=== PATIENT | female | born 1965 | race Caucasian/White ===

== ENCOUNTER → 2019-12-08 16:13 | Outpatient (CLI) | payer OTHER, SELFPAY | PROVIDERS: PCP Nurse Practitioner Family; Visit Provider Nurse Practitioner | DX: R30.0 Dysuria (principal) | CPT/HCPCS: 87086 ==

== ENCOUNTER → 2019-12-29 09:43 | Outpatient (CLI) | payer OTHER, SELFPAY ==
[2019-12-29 09:57] LABS: Mean Corpuscular HGB Conc 32.5 % (30-36); Mean Corpuscular Hemoglobin 29.1 PG (26-34); Mean Corpuscular Volume 89.3 fL (80-100); Platelet Count 306 X10^3/uL (150-400); Red Blood Cell Count 4.82 X10^6/uL (4.0-5.2); Red Cell Distribution Width 13.5 % (11.6-14.8)
[2019-12-29 10:12] LABS: Alanine Aminotransferase 25 IU/L (<35); Albumin 4.9 g/dL (3.5-5.0); Albumin Globulin Ratio 1.5 (1.0-2.8); Alkaline Phosphatase 82 U/L (38-126); Aspartate Aminotransferase 43 IU/L (14-36); BUN Creatinine Ratio 20.3 (6-22); Bilirubin Total 0.8 mg/dL (0.2-1.3); Blood Urea Nitrogen 15 mg/dL (7-17); Calcium 9.9 mg/dL (8.4-10.2); Carbon Dioxide 31 mmol/L (22-32); Chloride 101 mmol/L (98-107); Cholesterol 219 mg/dL (140-199); Estimated Glomerular Filt Rate > 60.0 mL/min (>60); Globulin 3.3 g/dL (1.7-4.1); Glucose 91 mg/dL (70-100); HEMOLYSIS < 15 (0-50); Potassium 4.6 mmol/L (3.4-5.1); Sodium 139 mmol/L (137-145); Total Protein 8.2 g/dL (6.3-8.2); Triglycerides 70 mg/dL (35-150)
[2019-12-29 10:20] LABS: HDL Cholesterol 127 mg/dL (40-60); LDL Cholesterol Calculated 78 mg/dL (<100)
[2019-12-29 10:40] LABS: TSH w/ Reflex to FT4 1.31 uIU/mL (0.47-4.68)
--- NOTE | 2019-12-29 15:40 | DI.US.S_ITS ---
PROCEDURE: US ABDOMEN COMPLETE INDICATIONS: abd pain TECHNIQUE: Real-time scanning was performed of the abdominal and retroperitoneal organs, with image documentation. COMPARISON: [facility], US, US PELVIC COMPLETE, 12/29/2019, 16:10. FINDINGS: Liver: Liver is normal in size and homogeneous in echotexture. Gallbladder: No findings of gallstones or sludge are seen. The gallbladder wall is not thickened, measuring 3 mm or less. No specific pericholecystic fluid is seen. The sonographic Solorio sign is negative. Biliary ducts: Intrahepatic bile ducts are non-dilated. Extrahepatic bile duct caliber measures 3 mm. Normal is 6-7 mm or less in diameter, or 10 mm or less post-cholecystectomy. Pancreas: Visualized portions of the pancreas are sonographically normal. Spleen: Spleen is normal in size and homogeneous in echotexture. Kidneys: Kidneys are normal in size and echotexture. Right kidney measures 11.4 cm long; left kidney measures 11.2 cm long. No hydronephrosis or nephrolithiasis. No solid masses. Aorta: Visualized aorta is normal in caliber at less than 3 cm. Iliacs: Proximal common iliac arteries are normal in caliber at less than 2.5 cm. IVC: Intrahepatic inferior vena cava is patent. Miscellaneous: No free abdominal fluid. IMPRESSION: The gallbladder demonstrates a normal sonographic appearance. No biliary dilatation is seen. Dictated by: Keshav Don M.D. on 12/29/2019 at 15:54 Approved by: Keshav Don M.D. on 12/29/2019 at 15:55
--- NOTE | 2019-12-29 15:40 | DI.US.S_ITS ---
PROCEDURE: US PELVIC COMPLETE INDICATIONS: abd pain TECHNIQUE: Real-time scanning was performed of the pelvic organs, with image documentation. Additional endovaginal scanning was necessary due to incomplete visualization of the adnexal and endometrial structures by transabdominal scanning. COMPARISON: [facility], , US ABDOMEN COMPLETE, 12/29/2019, 15:50. FINDINGS: Transabdominal scanning: Limited scanning through the kidneys shows no hydronephrosis. No pathologic free abdominal or pelvic fluid. Additional, dedicated ultrasound scanning is performed of the right lower quadrant. No focal ultrasound abnormalities are seen within this region. Normal appearing peristalsing bowel can be seen. Endovaginal scanning: Uterus: Uterus is normal in size at 6.9 x 3.2 x 3.6 cm. The endometrium measures 3 mm in combined thickness. Ovaries: The right ovary measures 2 x 1.1 x 1.4 cm. The left ovary measures 1.9 x 1 x 1 cm. The ovaries have a normal sonographic appearance. Normal appearing arterial waveforms are confirmed to each ovary. No adnexal masses are seen. IMPRESSION: Normal pelvic ultrasound. Dictated by: Keshav Don M.D. on 12/29/2019 at 15:55 Approved by: Keshav Don M.D. on 12/29/2019 at 15:57
[2020-01-03 21:06] LABS: Estrogen 123 pg/mL (.)
== END ==
PROVIDERS: PCP Nurse Practitioner Family; Referring Provider Nurse Practitioner Family; Visit Provider Nurse Practitioner Family
DX: N92.6 Irregular menstruation, unspecified (principal); R10.31 Right lower quadrant pain; R10.2 Pelvic and perineal pain; Z13.6 Encounter for screening for cardiovascular disorders
CPT/HCPCS: 36415; 76700; 76856; 80053; 80061; 82672; 83001; 84443; 85027

== ENCOUNTER → 2020-01-13 11:48 | Outpatient (CLI) | payer OTHER, SELFPAY ==
--- NOTE | 2020-01-13 11:50 | DI.MG.S_ITS ---
BILATERAL DIGITAL SCREENING MAMMOGRAM 3D/2D WITH CAD: 01/13/2020 CLINICAL: Routine screening. Comparison is made to exams dated: 11/18/2018 mammogram, 07/02/2017 mammogram, and 06/18/2015 mammogram - [facility]. The tissue of both breasts is extremely dense, which lowers the sensitivity of mammography. Current study was also evaluated with a Computer Aided Detection (CAD) system. No significant masses, calcifications, or other findings are seen in either breast. There has been no significant interval change. IMPRESSION: NEGATIVE There is no mammographic evidence of malignancy. A 1 year screening mammogram is recommended. This exam was interpreted at Station ID: [id number]. NOTE: For mammograms, a report in lay terms will be sent to the patient. Approximately 15% of breast malignancies will not be visualized mammographically. In the management of a palpable breast mass, a negative mammogram must not discourage biopsy of a clinically suspicious lesion. Electronically Signed By: Misael mercado/justin:01/13/2020 17:09:27 copy to: Lety Esquivel letter sent: Normal Exam ACR BI-RADS Category 1: Negative 3341F
== END ==
PROVIDERS: PCP Nurse Practitioner Family; Referring Provider Nurse Practitioner Family; Visit Provider Nurse Practitioner Family
DX: Z12.31 Encounter for screening mammogram for malignant neoplasm of breast (principal)
CPT/HCPCS: 77063; 77067

== ENCOUNTER → 2020-04-04 11:51 | Outpatient (CLI) | payer OTHER, SELFPAY | PROVIDERS: PCP Nurse Practitioner Family; Visit Provider Nurse Practitioner | DX: R39.15 Urgency of urination (principal) | CPT/HCPCS: 87077; 87086; 87186 ==

== ENCOUNTER 2020-05-21 21:04 | Emergency (ER) | payer OTHER, SELFPAY ==
[2020-05-21 21:10] VITALS: BP 145/83; PULSE 64; RESP 18; TEMP 36.6; O2SAT 98
--- NOTE | 2020-05-21 21:17 | DI.RAD.S_ITS ---
PROCEDURE: XR SHOULDER RT MIN 2V INDICATIONS: slipped going down ladder + grabbed railing with right hand TECHNIQUE: Three views of the shoulder were acquired. COMPARISON: None. FINDINGS: Bones: No fractures or dislocations. No suspicious bony lesions. Visualized ribs appear intact. Soft tissues: No suspicious soft tissue calcifications. IMPRESSION: Intact right shoulder. Dictated by: Kalie Alvarez M.D. on 05/21/2020 at 22:15 Approved by: Kalie Alvarez M.D. on 05/21/2020 at 22:16
--- NOTE | 2020-05-22 00:49 | ED.UPPEXIN ---
HPI - Extremity Injury (Upper) General Chief Complaint: Extremity Injury, Upper Stated Complaint: RIGHT ARM AND BACK INJURY Time Seen by Provider: 05/21/20 21:27 Source: patient Mode of arrival: Ambulatory Limitations: no limitations History of Present Illness HPI narrative: This is a 55-year-old female who states she injured her right shoulder. Patient was working on 1 of the pharynx. She was descending down a set of very steep steps from the top of the very in the captain's portion. Patient states she was holding onto the railing with her right arm when she slipped. 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 She had pain immediately it has been slowly worsening. She has full range of motion but has increased pain with external rotation as well as flexion and extension. Patient states majority of her pain is in the shoulder but a little bit into the anterior chest and scapular area. She did not feel any pops. She denies any other injury. She denies any other medical issues. Denies any prior surgeries. Denies any prior injuries to that shoulder. No numbness, tingling or weakness appreciated. Related Data Previous Rx's Medication Instructions Recorded albuterol sulfate 90 mcg/actuation 2 puff INHALATION Q4-6H PRN #18 06/17/19 aerosol inhaler gram montelukast 10 mg tablet 10 mg PO DAILY #90 tab 09/08/19 pneumoc 13-carlos conj-dip cr(PF) 0.5 0.5 ml IM ONCE #0.5 ml 12/10/19 mL IM syringe budesonide-formoterol HFA 80 2 puff INHALATION BID #1 inhalation 04/20/20 mcg-4.5 mcg/actuation aerosol inhaler Allergies Allergy/AdvReac Type Severity Reaction Status Date / Time No Known Drug Allergies Allergy Verified 12/23/19 13:25 Review of Systems Review of Systems ROS Unobtainable: All systems reviewed & are unremarkable except as noted in HPI and below Patient History Medical History ASCUS of cervix with negative high risk HPV (11/2019) Asthma exacerbation Factor V Leiden mutation Frequent UTI GERD (gastroesophageal reflux disease) Irregular periods Osteoma Osteopenia (01/2018) Pelvic pain Rectal bleeding (~06/2019) Right lower quadrant pain Thyroid nodule Surgical History Status post bunionectomy (1990) Family History Brother No problems noted. Father Leukemia Grandfather No problems noted. Grandmother No problems noted. Mother No problems noted. Grandfather Suicide Grandmother [place] (myocardial infarction) Social History Smoking Status: Never smoker second hand exposure: Yes (as a kid I was, but not as an adult. ) alcohol intake: current (occasionally) substance use type: does not use Smoking Status: Never smoker alcohol intake frequency: a few times a month Substance Use Type: does not use Exam Narrative Exam Narrative: GENERAL: Alert and oriented x three, well-nourished female in mild distress. HEENT: Head normocephalic, atraumatic, EOMI, pupils reactive, face symmetric, moist mucous membranes NECK: Supple, full range of motion CARDIOVASCULAR: Regular rate and rhythm without murmurs, rubs or gallops. RESPIRATORY: Breath sounds equal bilaterally, no wheezes rales or rhonchi. ABDOMEN: Soft, nontender. Normoactive bowel sounds all 4 quadrants. No guarding or rebound, rigidity, no mass EXTREMITIES: Normal range of motion, no clubbing or edema. Neurovascularly intact. Patient has 5/5 muscle strength upper extremities bilaterally. 2/4 DTRs bilaterally. Can Filling And Closing Machine Tender are equal bilaterally. Radial pulses are equal bilaterally. Normal sensation throughout. Patient has full range of motion including with abduction, adduction, extension or flexion. Patient has very mild tenderness at the biceps tendon with palpation and rotation. NEUROLOGICAL: Cranial nerves II through XII grossly intact. Moving all extremities SKIN: Warm, dry, no petechiae, no rashes or lesions. Initial Vital Signs Initial Vital Signs: Vital Signs Temperature 97.9 F 05/21/20 21:10 Pulse Rate 64 05/21/20 21:10 Respiratory Rate 18 05/21/20 21:10 Blood Pressure 145/83 H 05/21/20 21:10 Pulse Oximetry 98 05/21/20 21:10 Course Orders Ordered: ED Orders 05/21/20 21:17 XR shoulder RT min 2V Stat Vital Signs Vital signs: Vital Signs - 8 hr 05/21/20 21:10 05/22/20 00:54 Temperature 97.9 F Pulse Rate 64 72 Respiratory Rate 18 18 Blood Pressure 145/83 H 139/73 Pulse Oximetry 98 97 MDM - Extremity Injury (Upper) Imaging Data Extremity x-ray #1: Radiologist's Impression: [address] [id number] ReportSigned Patient: Sarah Foley RMR#: [id number]: [id number]:[id number]/Sex: 55 / FDate of Service: 05/21/20Loc: EDAccession Number: [id number] Procedure: XR shoulder RT min 2V Ordering Provider: Anahy Rodriguez D.O. PROCEDURE: XR SHOULDER RT MIN 2V INDICATIONS: slipped going down ladder + grabbed railing with right hand TECHNIQUE: Three views of the shoulder were acquired. COMPARISON: None. FINDINGS: Bones: No fractures or dislocations. No suspicious bony lesions. Visualized ribs appear intact. Soft tissues: No suspicious soft tissue calcifications. IMPRESSION: Intact right shoulder. Dictated by: Kalie Alvarez M.D. on 05/21/2020 at 22:15 Approved by: Kalie Alvarez M.D. on 05/21/2020 at 22:16 [facility] Narrative Medical decision making narrative: This is a 55-year-old female who comes with right arm injury. Possibly strain, there is potential for tendon, ligamentous or muscle tear. Patient is mildly symptomatic. Plan for follow-up. L and I paperwork filled out. Discharge Plan Departure Patient Disposition: Home Clinical Impression: Right shoulder strain Instructions: DI for Shoulder Sprain Activity Restrictions/Additional Instructions: Follow-up with employee health or your primary care if your employer prefers in the next 7 days if you are not having improvement in your symptoms. You may take ibuprofen up to 800mg every 8 hours as needed, you may also take Tylenol with this up to a 1000 mg every 8 hours as needed for pain. Elevated affected body part to decrease swelling. OK to use ice pack on the affected body part. Use for 15-20 minutes each time, for 5-6x per day. If you develop worsening pain, numbness, tingling, discoloration of the affected body part, either see your doctor for an urgent re-assessment, or return to the Emergency Department. Return to the Emergency Department for any new or worsening symptoms. Prescriptions: No Action montelukast 10 mg tablet 10 mg PO DAILY Qty: 90 RF: 2 Prevnar 13 (PF) 0.5 mL syringe 0.5 ml IM ONCE Qty: 0.5 RF: 0 budesonide-formoterol [Symbicort] 80-4.5 mcg/actuation HFA aerosol inhaler 2 puff INHALATION BID Qty: 1 RF: 2 albuterol sulfate 90 mcg/actuation HFA aerosol inhaler 2 puff INHALATION Q4-6H PRN (Reason: shortness of breath or wheezing) Qty: 18 RF: 3 Referrals: Geo Hernandes ARNP [Primary Care Provider] - Stand Alone Forms: Work Release Note
[2020-05-22 00:54] VITALS: BP 139/73; PULSE 72; RESP 18; O2SAT 97
== END 2020-05-22 01:30 | disposition home or self-care (01) ==
PROVIDERS: Emergency Provider Emergency Medicine; PCP Nurse Practitioner Family
DX: S43.401A Unspecified sprain of right shoulder joint, initial encounter (principal); W01.0XXA Fall on same level from slipping, tripping and stumbling without subsequent striking against object, initial encounter
CPT/HCPCS: 73030; 99283

== ENCOUNTER → 2020-12-19 11:21 | Outpatient (CLI) | payer OTHER, SELFPAY ==
[2020-12-19 11:53] LABS: COVID19 -Nasal RAPID Negative (Negative)
== END ==
PROVIDERS: PCP Nurse Practitioner Family; Visit Provider Physician Assistant
DX: J02.9 Acute pharyngitis, unspecified (principal); R05 Cough; R19.7 Diarrhea, unspecified; Z20.822 Contact with and (suspected) exposure to COVID-19
CPT/HCPCS: 87070; 87635

== ENCOUNTER → 2021-06-06 09:40 | Outpatient (CLI) | payer OTHER, SELFPAY ==
--- NOTE | 2021-06-06 09:41 | DI.MG.S_ITS ---
BILATERAL DIGITAL DIAGNOSTIC MAMMOGRAM 3D/2D: 06/06/2021 CLINICAL: Right breast pain. Comparison is made to exams dated: 01/13/2020 mammogram, 11/18/2018 mammogram, and 07/02/2017 mammogram - [facility]. The tissue of both breasts is extremely dense, which lowers the sensitivity of mammography. No significant masses, calcifications, or other findings are seen in either breast. IMPRESSION: NEGATIVE There is no abnormality seen in the right breast to correspond with the diffuse pain, however, clinical followup is recommended. There is no mammographic evidence of malignancy. A 1 year screening mammogram is recommended. This exam was interpreted at Station ID: [id number]. NOTE: For mammograms, a report in lay terms will be sent to the patient. Approximately 15% of breast malignancies will not be visualized mammographically. In the management of a palpable breast mass, a negative mammogram must not discourage biopsy of a clinically suspicious lesion. Electronically Signed By: Isaiah marquez/justin:06/06/2021 10:11:38 copy to: Lety Esquivel letter sent: Clinical Evaluation ACR BI-RADS Category 1: Negative 3341F
== END ==
PROVIDERS: PCP Nurse Practitioner Family; Referring Provider Nurse Practitioner Family; Visit Provider Nurse Practitioner Family
DX: N64.4 Mastodynia (principal)
CPT/HCPCS: 77066; G0279

== ENCOUNTER → 2021-11-08 09:50 | Outpatient (CLI) | payer OTHER, SELFPAY ==
[2021-11-08 11:57] LABS: COVID19 -Nasal RAPID Negative (Negative)
== END ==
PROVIDERS: PCP Nurse Practitioner Family; Visit Provider Physician Assistant
DX: Z20.822 Contact with and (suspected) exposure to COVID-19 (principal)
CPT/HCPCS: 87635

== ENCOUNTER → 2022-01-30 09:01 | Outpatient (CLI) | payer OTHER, SELFPAY ==
[2022-01-30 10:10] LABS: Hematocrit 42.6 % (36-46); Hemoglobin 13.9 g/dL (12.0-16.0); Mean Corpuscular HGB Conc 32.6 % (30-36); Mean Corpuscular Hemoglobin 28.7 PG (26-34); Mean Corpuscular Volume 88.2 fL (80-100); Platelet Count 275 X10^3/uL (150-400); Red Blood Cell Count 4.83 X10^6/uL (4.0-5.2); White Blood Cell Count 4.6 X10^3/uL (4.5-11.0)
[2022-01-30 10:43] LABS: Alanine Aminotransferase 18 IU/L (<35); Albumin 4.6 g/dL (3.5-5.0); Albumin Globulin Ratio 1.5 (1.0-2.8); Alkaline Phosphatase 78 U/L (38-126); Aspartate Aminotransferase 32 IU/L (14-36); Bilirubin Total 0.6 mg/dL (0.2-1.3); Blood Urea Nitrogen 8 mg/dL (7-17); Calcium 9.5 mg/dL (8.4-10.2); Carbon Dioxide 27 mmol/L (22-32); Chloride 100 mmol/L (98-107); Cholesterol 272 mg/dL (140-199); Estimated Glomerular Filt Rate > 60 mL/min (>60); Glucose 82 mg/dL (70-100); HEMOLYSIS < 15 (0-50); Potassium 4.5 mmol/L (3.4-5.1); Sodium 136 mmol/L (137-145); Total Protein 7.6 g/dL (6.3-8.2); Triglycerides 65 mg/dL (35-150)
[2022-01-30 10:46] LABS: Free T3, Triiodothyronine Free 3.28 pg/mL (2.77-5.27); Free T4, Direct Thyroxine 0.84 ng/dL (0.78-2.19)
[2022-01-30 10:52] LABS: HDL Cholesterol 194 mg/dL (40-60); LDL Cholesterol Calculated 65 mg/dL (<100)
[2022-01-30 11:00] LABS: Thyroid Stimulating Hormone 2.03 uIU/mL (0.47-4.68)
[2022-01-30 18:50] LABS: Hep C Virus Ab w/Reflex Quant NEGATIVE s/c (NEGATIVE)
== END ==
PROVIDERS: PCP Nurse Practitioner; Referring Provider Nurse Practitioner; Visit Provider Nurse Practitioner
DX: Z00.00 Encounter for general adult medical examination without abnormal findings (principal); N91.2 Amenorrhea, unspecified; Z12.11 Encounter for screening for malignant neoplasm of colon
CPT/HCPCS: 36415; 80053; 80061; 83001; 84439; 84443; 84481; 85027; 86803

== ENCOUNTER → 2022-04-21 09:58 | Outpatient (CLI) | payer OTHER, SELFPAY | PROVIDERS: PCP Nurse Practitioner; Visit Provider Student in an Organized Health Care Education/Training Program | DX: N39.0 Urinary tract infection, site not specified (principal) | CPT/HCPCS: 87077; 87086; 87186 ==

== ENCOUNTER → 2022-10-23 10:50 | Outpatient (CLI) | payer OTHER, SELFPAY ==
--- NOTE | 2022-10-23 10:51 | DI.MG.S_ITS ---
BILATERAL DIGITAL SCREENING MAMMOGRAM 3D/2D WITH CAD: 10/23/2022 CLINICAL: Routine screening. Comparison is made to exams dated: 06/06/2021 mammogram, 01/13/2020 mammogram, 12/06/2018 mammogram, and 11/18/2018 mammogram - [facility]. Both breasts are extremely dense, which lowers the sensitivity of mammography (category d />75% glandular tissue). Current study was also evaluated with a Computer Aided Detection (CAD) system. No significant masses, calcifications, or other findings are seen in either breast. There has been no significant interval change. IMPRESSION: NEGATIVE There is no mammographic evidence of malignancy. A 1 year screening mammogram is recommended. Based on Tyrer-Cuzick model (a risk assessment model), the patient's lifetime risk is 21.0% and her 10 year risk is 7.1%. If a patient has an elevated risk, a more comprehensive evaluation should be considered and/or a referral to a genetic counselor. The [employer], [employer], and NCCN Guidelines advise the consideration of Breast MRI as an adjunct to screening mammography in patients whose Lifetime risk to develop breast cancer is 20% or higher. This exam was interpreted at Station ID: [id number]. NOTE: For mammograms, a report in lay terms will be sent to the patient. Approximately 15% of breast malignancies will not be visualized mammographically. In the management of a palpable breast mass, a negative mammogram must not discourage biopsy of a clinically suspicious lesion. Electronically Signed By: Mai castro/justin:10/23/2022 12:59:42 copy to: Lety Esquivel letter sent: Normal Exam ACR BI-RADS Category 1: Negative 3341F
== END ==
PROVIDERS: PCP Nurse Practitioner; Referring Provider Nurse Practitioner; Visit Provider Nurse Practitioner
DX: Z12.31 Encounter for screening mammogram for malignant neoplasm of breast (principal)
CPT/HCPCS: 77063; 77067

== ENCOUNTER → 2022-11-24 09:36 | Outpatient (CLI) | payer OTHER, SELFPAY | PROVIDERS: PCP Nurse Practitioner; Visit Provider Physician Assistant | DX: R30.0 Dysuria (principal) | CPT/HCPCS: 87086 ==

== ENCOUNTER → 2023-01-02 10:09 | Outpatient (CLI) | payer OTHER, SELFPAY | PROVIDERS: PCP Nurse Practitioner; Visit Provider Physician Assistant | DX: R30.0 Dysuria (principal); R31.9 Hematuria, unspecified | CPT/HCPCS: 87086 ==

== ENCOUNTER → 2023-03-22 14:12 | Outpatient (CLI) | payer OTHER, SELFPAY | PROVIDERS: PCP Nurse Practitioner; Visit Provider Physician Assistant | DX: R10.9 Unspecified abdominal pain (principal) | CPT/HCPCS: 87086 ==

== ENCOUNTER 2023-12-21 12:02 | Emergency (ER) | payer OTHER, SELFPAY ==
[2023-12-21 12:07] VITALS: BP 152/95; PULSE 75; RESP 16; TEMP 36.4; O2SAT 98; BMI 19.5
--- NOTE | 2023-12-21 12:16 | ED.EXTPRO ---
HPI - Extremity Problem <Ara Dixon PA-C - Last Filed: 12/21/23 14:13> General Chief complaint: Extremity Problem,Nontraumatic Stated complaint: bilateral leg px, just of prednizone Time Seen by Provider: 12/21/23 12:16 History of Present Illness HPI Narrative: Patient is a very pleasant 58-year-old female that presents to the emergency room department today complaining of bilateral lower extremity discomfort and pain, feels as if her legs are unsteady, and that she has severe bone pain. Patient recently seen in the walk-in clinic on 12/13 with a rash to her neck, was diagnosed with impetigo started on Bactroban which she had a reaction to. Then presented back to the walk-in clinic on 12/16 for the allergic reaction to the Bactroban and was prescribed prednisone 20 mg 1 tablet daily for 3 days which she finished, and triamcinolone 0.5% cream which she has been applying to the rash that she has on her neck which is improving. She now presents to the emergency room department with complaints of bilateral lower extremity discomfort and pain. She denies recent injury, trauma or fall. She does not have any rash on her legs. However, the patient states she was diagnosed with osteopenia, and was encouraged to take supplementation. She states that when she was diagnosed with osteopenia she had lower extremity leg pain, and this feels as if osteopenia is back, she is wondering if the prednisone could have cause a return of the osteopenia. She has had a DEXA scan within the last year. She has had labs within the last year. Her cholesterol was mildly elevated but her good cholesterol was also elevated, and she was not started on any medications. Her thyroid was mildly low at 0.68. She was not started on any supplementation. She has no other further complaints except the bilateral lower extremity pain, and discomfort when she is ambulating. And the fact that her legs feel mildly unsteady. She is afraid maybe perhaps she has a stress fracture. Related Data Previous Rx's Medication Instructions Recorded albuterol sulfate 90 mcg/actuation 2 puff inhalation Q4-6H PRN 11/29/21 aerosol inhaler shortness of breath or wheezing #18 grams budesonide-formoterol HFA 80 See Rx Instructions .Route 11/29/21 mcg-4.5 mcg/actuation aerosol .COMPLEX #10.2 grams inhaler cyclobenzaprine 5 mg tablet 5 mg PO TID PRN muscle spasm #90 10/10/23 tabs montelukast 10 mg tablet See Rx Instructions .Route 10/10/23 .COMPLEX #90 tabs prednisone 20 mg tablet 20 mg PO DAILY #3 tabs 12/17/23 triamcinolone acetonide 0.5 % 1 applic topical TID #15 grams 12/17/23 topical ointment ketorolac 10 mg tablet 10 mg PO Q8H 5 days #15 tabs 12/21/23 Allergies Allergy/AdvReac Type Severity Reaction Status Date / Time mupirocin Allergy Intermediate ITCHING Verified 12/17/23 11:06 Review of Systems <Ara Dixon PA-C - Last Filed: 12/21/23 14:13> Review of Systems Narrative: Negative except as above Musculoskeletal Comments: Bilateral bone pain in her femurs. Patient History <Ara Dixon PA-C - Last Filed: 12/21/23 14:13> Medical History Myofascial pain Compression fracture of T5 vertebra Low back pain Thoracic back pain Asthma Upper respiratory infection Muscle strain ASCUS of cervix with negative high risk HPV (11/2019) Osteoma Rectal bleeding (~06/2019) Osteopenia (01/2018) Irregular periods Pelvic pain Right lower quadrant pain Asthma exacerbation Factor V Leiden mutation Frequent UTI GERD (gastroesophageal reflux disease) Thyroid nodule Surgical History Status post bunionectomy (1990) Family History Brother No problems noted. Father Leukemia Grandfather No problems noted. Grandmother No problems noted. Mother No problems noted. Grandfather Suicide Grandmother RI (myocardial infarction) Social History Smoking Status: Never smoker second hand exposure: Yes (as a kid I was, but not as an adult. ) alcohol intake: current substance use type: does not use Smoking Status: Never smoker alcohol intake frequency: a few times a month Substance Use Type: does not use Exam <Ara Dixon PA-C - Last Filed: 12/21/23 14:13> Initial Vital Signs Initial Vital Signs: Vital Signs Temperature 97.5 F L 12/21/23 12:07 Pulse Rate 75 12/21/23 12:07 Respiratory Rate 16 12/21/23 12:07 Blood Pressure 152/95 H 12/21/23 12:07 Pulse Oximetry 98 12/21/23 12:07 Oxygen Delivery Method Room Air 12/21/23 12:07 Reviewed Const General: cooperative, healthy appearing, comfortable, well developed, well groomed, No acute distress and No in distress Nutritional Appearance: average body habitus and well nourished Eyes General: Yes appearance normal, both eyes and all related structures Pupils: PERRL EOM: EOM intact bilaterally Skin Other: Warm pink and dry, there is no rashes that are noted, cap refill is preserved, pulses are present. There is no soft tissue swelling. There is no signs of erythema. There is no signs of trauma. Neuro General: patient alert, patient awake, patient oriented x3, oriented, gait normal, tone normal and moves all extremities Cranial Nerves: CN's II-XI intact bilaterally Cognition: normal cognition Speech: speech normal Gait: normal gait Extrem Other: Range of motion, strength, pulses, cap refill preserved in the upper and lower extremities bilaterally. There has no signs of trauma. There is no signs of rash. The pain is all deep inside per the patient. There was no external findings. Exam is negative for any substantial findings. Psych Appearance: grossly normal and well kempt Mental Status: mental status grossly normal Speech and Movement: speech and movement normal Mood: congruent mood Affect: normal affect Attitude: cooperative Thought Process: normal Thought Content: normal Judgment: judgment good <Dia Pendleton DO - Last Filed: 12/22/23 07:40> Initial Vital Signs Initial Vital Signs: Vital Signs Temperature 97.5 F L 12/21/23 12:07 Pulse Rate 75 12/21/23 12:07 Respiratory Rate 16 12/21/23 12:07 Blood Pressure 152/95 H 12/21/23 12:07 Pulse Oximetry 98 12/21/23 12:07 Oxygen Delivery Method Room Air 12/21/23 12:07 Scores <Ara Dixon PA-C - Last Filed: 12/21/23 14:13> GCS Citation: 15 Course <Ara Dixon PA-C - Last Filed: 12/21/23 14:13> Orders Ordered: Discontinued Medications Ketorolac Tromethamine (Ketorolac 30 Mg/Ml Vial) 30 mg IM NOW ONE Stop: 12/21/23 12:31 Last Admin: 12/21/23 12:36 Dose: 30 mg Documented By: SPF Reevaluation(s) Reevaluation #1: 30 mg of Toradol was given IM. Check the patient at 1:00 p.m. she does state she feels a little bit better, the legs do not feel unsteady, they do not feel like they are going to give out on her she still does have some bone pain, but feels slightly better. Reevaluation #2: Rechecked the patient at 2:00 a.m. the patient states the pain is worse, the medication is making her legs feel like shooting sharp pains. Vital Signs Vital signs: Vital Signs - 8 hr 12/21/23 12:07 12/21/23 13:10 12/21/23 14:02 Temperature 97.5 F L Pulse Rate 75 61 Respiratory Rate 16 14 Blood Pressure 152/95 H 131/81 Pulse Oximetry 98 98 Oxygen Delivery Method Room Air Room Air 12/21/23 14:06 Temperature Pulse Rate 63 Respiratory Rate Blood Pressure 153/93 H Pulse Oximetry 97 Oxygen Delivery Method Room Air Reviewed all within normal limits <Dia Pendleton DO - Last Filed: 12/22/23 07:40> Orders Ordered: Discontinued Medications Ketorolac Tromethamine (Ketorolac 30 Mg/Ml Vial) 30 mg IM NOW ONE Stop: 12/21/23 12:31 Last Admin: 12/21/23 12:36 Dose: 30 mg Documented By: SPF Vital Signs Vital signs: Vital Signs - 8 hr 12/21/23 12:07 12/21/23 13:10 12/21/23 14:02 Temperature 97.5 F L Pulse Rate 75 61 Respiratory Rate 16 14 Blood Pressure 152/95 H 131/81 Pulse Oximetry 98 98 Oxygen Delivery Method Room Air Room Air 12/21/23 14:06 Temperature Pulse Rate 63 Respiratory Rate Blood Pressure 153/93 H Pulse Oximetry 97 Oxygen Delivery Method Room Air MDM - Extremity (Nontraumatic) <Ara Dixon PA-C - Last Filed: 12/21/23 14:13> Lab Data Labs: Lab Results 12/21/23 Range/Units 12:57 ESR 1 (0-20) MM/HR Iron 99 (37-170) ug/dL Ferritin 87 (11-264) ng/mL C-Reactive Protein < 0.5 (<1.0) mg/dL Vitamin B12 378 (239-931) pg/mL Folate > 20.0 H (2.76-20.0) ng/mL MDM Narrative Medical decision making narrative: Pleasant 58-year-old female that presents to the emergency room department with deep bone bilateral lower extremity discomfort and pain with no recent injury, trauma. Recent short course of prednisone associated with the recent allergic reaction to Bactroban. History of osteopenia, no recent trauma. Taking supplementation for osteopenia. No major medical problems except for asthma which she takes montelukast. Exam is negative for any acute findings. I have reviewed her labs, and her chart. We have decided to do some labs here in the emergency room department. Sed rate CRP normal Iron studies 99, ferritin is 87, Folate is pending B12 pending she will take motrin We talked about the options for pain relief, we talked about neuropathic pain relievers such gabapentin, Lyrica We talked about topical preparations Rechecked about a work note, limitations, I hand wrote a work note for her. Patient did not want to take any other medications except [id number] Motrin. She plans to make arrangements to follow up with her primary care doctor. She has a primary care doctor, and most likely will be following up before the end of the year. We will discuss the findings of these labs prior to her being discharged. Differential diagnosis; bone pain could be associated with prednisone and is wanting to side effects. Patient states she recently had a DEXA scan, might be time for her to discuss with her primary care doctor another DEXA scan to evaluate if the osteopenia perhaps back. Reviewed the patient's chart, she had a DEXA scan in 2017 which showed 1.3-1.5 in the femoral necks and femur. Which showed that she would osteopenia. She then had another DEXA scan in 2019 which showed that she had at 1.3 in the femoral necks which showed she would continued osteopenia. She has not had a recent DEXA scan within the last 4 years, she is currently due for another DEXA scan and she will make arrangements through primary care doctor to order a DEXA scan. <Dia Pendleton DO - Last Filed: 12/22/23 07:40> Lab Data Labs: Lab Results 12/21/23 Range/Units 12:57 ESR 1 (0-20) MM/HR Iron 99 (37-170) ug/dL Ferritin 87 (11-264) ng/mL C-Reactive Protein < 0.5 (<1.0) mg/dL Vitamin B12 378 (239-931) pg/mL Folate > 20.0 H (2.76-20.0) ng/mL Discharge Plan Departure Patient Disposition: Home Clinical Impression: Bone pain of lower leg Activity Restrictions/Additional Instructions: Consider [id number] diclofenac/Voltaren Prescription has been sent to your pharmacy for pain You currently her due for a DEXA scan last DEXA scan was in 2019 Your lab work here in the emergency room department Please follow up with the primary care doctor Return to the emergency department as needed Prescriptions: New ketorolac 10 mg tablet 10 mg PO Q8H 5 Days Qty: 15 0RF No Action prednisone 20 mg tablet 20 mg PO DAILY Qty: 3 0RF triamcinolone acetonide 0.5 % ointment 1 applic topical TID Qty: 15 0RF budesonide-formoterol 80-4.5 mcg/actuation HFA aerosol inhaler See Rx Instructions .ROUTE .COMPLEX Qty: 10.2 2RF Dose Instruction: INHALE 2 PUFFS BY MOUTH TWICE DAILY. START WITH 1 PUFF 2 TIMES DAILY. MAY INCREASE TO 2 PUFFS 2 TIMES DAILY NEEDED Rx Instructions: INHALE 2 PUFFS BY MOUTH TWICE DAILY. START WITH 1 PUFF 2 TIMES DAILY. MAY INCREASE TO 2 PUFFS 2 TIMES DAILY NEEDED albuterol sulfate 90 mcg/actuation HFA aerosol inhaler 2 puff INHALATION Q4-6H PRN (Reason: shortness of breath or wheezing) Qty: 18 4RF cyclobenzaprine 5 mg tablet 5 mg PO TID PRN (Reason: muscle spasm) Qty: 90 3RF montelukast 10 mg tablet See Rx Instructions .ROUTE .COMPLEX Qty: 90 3RF Dose Instruction: TAKE 1 TABLET BY MOUTH DAILY Rx Instructions: TAKE 1 TABLET BY MOUTH DAILY Referrals: Tia Cortes ARNP [Primary Care Provider] - Stand Alone Forms: Patient Portal/API, Work Release Note ED Sign-out <Dia Pendleton DO - Last Filed: 12/22/23 07:40> Cosign ED Attending Cosignature Attestation: I was available for consultation.
[2023-12-21] MEDS: KETOROLAC 30 MG/ML VIAL IM (12:36)
[2023-12-21 13:10] VITALS: BP 131/81; PULSE 61; O2SAT 98
[2023-12-21 13:20] LABS: C-Reactive Protein Quant < 0.5 mg/dL (<1.0)
[2023-12-21 13:22] LABS: Erythrocyte Sedimentation Rate 1 MM/HR (0-20)
[2023-12-21 13:25] LABS: Iron 99 ug/dL (37-170)
[2023-12-21 13:52] LABS: Ferritin 87 ng/mL (11-264)
[2023-12-21 14:02] VITALS: RESP 14
[2023-12-21 14:06] VITALS: BP 153/93; PULSE 63; O2SAT 97
[2023-12-21 14:33] LABS: Folate > 20.0 ng/mL (2.76-20.0); Vitamin B12 378 pg/mL (239-931)
== END 2023-12-21 14:15 | disposition home or self-care (01) ==
PROVIDERS: Emergency Provider Physician Assistant; PCP Nurse Practitioner
DX: M89.8X6 Other specified disorders of bone, lower leg (principal)
CPT/HCPCS: 36415; 82607; 82728; 82746; 83540; 85651; 86140; 96372; 99283; J1885

== ENCOUNTER → 2024-01-09 09:49 | Outpatient (CLI) | payer OTHER, SELFPAY ==
--- NOTE | 2024-01-09 09:50 | DI.RAD.S_ITS ---
PROCEDURE: XR DEXA AXIAL SKELETON INDICATIONS: Osteopenia COMPARISON: None. FINDINGS: Lumbar Spine: Bone mineral density 0.953 g/cm2, T score -0.9 Left Hip: Bone mineral density 0.840 g/cm2, T score -0.8 Left Femoral Neck: Bone mineral density 0.658 g/cm2, T score -1.7 Right Hip: Bone mineral density 0.835 g/cm2, T score -0.9. Right Femoral Neck: Bone mineral density 0.689 g/cm2, T score -1.4. Fracture Risk Calculation (when applicable): 10-year fracture risk of a major osteoporotic fracture 6.9 percent and of a hip fracture 0.7 percent. (T score greater or equal to -1.0 to: NORMAL) (T score from -1.1 to -2.4: OSTEOPENIA) (T score less than or equal to -2.5: OSTEOPOROSIS) IMPRESSION: Osteopenia with increased 10 year fracture risk as above. Follow-up guidelines as follows: Osteoporosis: Consider a repeat DEXA and Vertebral Fracture Assessment (VFA) exam in 2 years or sooner if medically necessary, to reassess this patient's status. Osteopenia: Consider a repeat DEXA in 2-3 years to reassess this patient's status, or if there is a new clinical indication. Normal: Consider a repeat DEXA in 5 years or sooner, or if there is a new clinical indication. All treatment decisions require clinical judgment and consideration of individual patient factors, including patient preferences, comorbidities, previous drug use, risk factors not captured in the FRAX model (e.g., frailty, falls, vitamin D deficiency, increased bone turnover, interval significant decline in bone density ) and possible under- or over-estimation of fracture risk by FRAX. In addition, the NOF Guide recommends that FDA-approved medical therapies be considered in postmenopausal women and men age >= 50 years with a: * Hip or vertebral (clinical or morphometric) fracture * T-score of <=-2.5 at the spine or hip * Ten-year fracture probability by FRAX of >= 3% for hip fracture or >=20% for major osteoporotic fracture. People with diagnosed cases of osteoporosis or at high risk for fracture should have regular bone mineral density tests. For patients eligible for Medicare, routine testing is allowed once every 2 years. The testing frequency can be increased to one year for patients who have rapidly progressing disease, those who are receiving or discontinuing medical therapy to restore bone mass, or have additional risk factors. Dictated by: Moise Mohamud M.D. on 01/09/2024 at 17:44 Approved by: Moise Mohamud M.D. on 01/09/2024 at 17:45
== END ==
LOC: RAD 09:50
PROVIDERS: PCP Nurse Practitioner Family; Referring Provider Nurse Practitioner Family; Visit Provider Nurse Practitioner Family
DX: M85.89 Other specified disorders of bone density and structure, multiple sites (principal)
CPT/HCPCS: 77080

== ENCOUNTER → 2024-02-24 12:19 | Outpatient (CLI) | payer OTHER, SELFPAY ==
[2024-02-24 12:23] LABS: Appearance Urine UA CLEAR; Bilirubin Urine UA NEGATIVE (NEGATIVE); Glucose Urine UA NEGATIVE (Negative); Ketones Urine UA NEGATIVE (NEGATIVE); Leukocyte Esterase Urine UA 1+ (NEGATIVE); Nitrite Urine UA NEGATIVE (Negative); Occult Blood Urine UA 3+ (Negative); Protein Urine UA TRACE (Negative); Specific Gravity Urine UA <=1.005 (1.000-1.035); Urobilinogen Urine UA 0.2 E.U./dL (0.2)
[2024-02-24 12:24] LABS: Color Urine UA Dark Yellow
[2024-02-24 12:29] LABS: Bacteria Urine Few (2-10); Culture Indicated Urine Specimen Cultured; RBC Urine 5-10/HPF (0-5/HPF); Squamous Epithelial Cell Urine 1-5 /HPF (0-5/HPF); Urine Volume 10mL (spun); WBC Urine 10-30/HPF (0-5/HPF)
== END ==
PROVIDERS: PCP Nurse Practitioner Family; Visit Provider Nurse Practitioner Family
DX: R35.0 Frequency of micturition (principal); R10.2 Pelvic and perineal pain
CPT/HCPCS: 81001; 87077; 87086; 87186

== ENCOUNTER → 2024-07-30 07:57 | Outpatient (CLI) | payer OTHER, SELFPAY ==
--- NOTE | 2024-07-30 08:01 | DI.RAD.S_ITS ---
PROCEDURE: XR FOOT LT MIN 3V INDICATIONS: traumatic L forefoot pain TECHNIQUE: 3 views of the foot were acquired. COMPARISON: None. FINDINGS: Bones: No fractures or dislocations. No suspicious bony lesions. Mild hallux valgus metatarsus prima varus alignment and medial bunion. Mild 1st MTP and diffuse interphalangeal joint space narrowing with minimal periarticular osteophyte formation. Soft tissues: No tibiotalar joint effusion. Achilles tendon appears normal. IMPRESSION: 1. No acute bony abnormality. 2. Mild hallux valgus alignment and medial bunion. 3. Mild 1st MTP and diffuse interphalangeal joint degeneration. If there is high concern for further derangement, consider MRI evaluation. Dictated by: Pilo Dozier [facility] Interpreted: Christopher Pfeiffer MD on 07/30/2024 at 9:42 Approved by: Christopher Pfeiffer M.D. on 08/05/2024 at 15:14
== END ==
LOC: RAD 07:59
PROVIDERS: PCP Nurse Practitioner Family; Referring Provider Chiropractor; Visit Provider Chiropractor
DX: S90.32XA Contusion of left foot, initial encounter (principal); M20.12 Hallux valgus (acquired), left foot; M21.612 Bunion of left foot; M19.072 Primary osteoarthritis, left ankle and foot; X58.XXXA Exposure to other specified factors, initial encounter
CPT/HCPCS: 73630

== ENCOUNTER → 2024-08-12 09:14 | Outpatient (CLI) | payer OTHER, SELFPAY ==
--- NOTE | 2024-08-12 09:15 | DI.MRI.S_ITS ---
PROCEDURE: MRFOOT LT WO CON INDICATIONS: left foot pain TECHNIQUE: Multiphasic, multisequence MRI of the forefoot was performed, without intravenous contrast administration. COMPARISON: None. FINDINGS: Image quality: Excellent. Bones and joints: There is marrow edema involving 3rd metatarsal head and neck as well as mid to distal shaft. Internal linear hypointense signal is seen concerning for stress fracture involving 3rd metatarsal neck. No other area of abnormal marrow signal. Mild midfoot and forefoot joint osteoarthritic changes are seen most notably involving 1st MTP joint and articulation between 1st metatarsal head and sesamoids. No suspicious bony lesions. Soft tissues: Mild soft tissue edema surrounding 1st metatarsal shaft is seen. Visualized plantar foot muscles are normal in size and signal. Mild tendinosis involving flexor tendon of the 3rd toe at the level of 3rd MTP joint is seen. Rest of the visualized flexor and extensor tendons appear intact, without tenosynovitis. The distal insertions of the peroneus brevis and longus tendons appear intact. The principal Lisfranc ligament appears intact. No soft tissue ganglion cysts or bursal fluid collections. Sagittal images demonstrate no evidence for plantar plate tears. IMPRESSION: 1. Finding is suggestive of nondisplaced stress fracture involving 3rd metatarsal neck with marrow edema. No other fracture or dislocation. Mild midfoot and forefoot joint osteoarthritis. No suspicious bony lesions. 2. Mild soft tissue swelling surrounding 3rd metatarsal neck and mid to distal shaft. No soft tissue mass or drainable fluid collection. 3. Mild tendinosis involving flexor tendon of 3rd toe at the level of 3rd MTP joint. Rest of the tendons and ligaments are intact. Dictated by: Moise Mohamud M.D. on 08/12/2024 at 10:21 Approved by: Moise Mohamud M.D. on 08/12/2024 at 10:30
== END ==
LOC: MRI 09:14
PROVIDERS: PCP Nurse Practitioner Family; Referring Provider Nurse Practitioner Family; Visit Provider Nurse Practitioner Family
DX: M79.672 Pain in left foot (principal); S90.32XA Contusion of left foot, initial encounter; M19.072 Primary osteoarthritis, left ankle and foot; M25.475 Effusion, left foot
CPT/HCPCS: 73718

== ENCOUNTER → 2024-10-20 13:32 | Outpatient (CLI) | payer OTHER, SELFPAY ==
--- NOTE | 2024-10-20 13:38 | DI.MRI.S_ITS ---
PROCEDURE: MRFOOT LT WO CON INDICATIONS: LT FOOT PAIN/INJURY TECHNIQUE: Multiphasic, multisequence MRI of the forefoot was performed, without intravenous contrast administration. COMPARISON: [facility], , MR FOOT LT WO CON, 08/12/2024, 9:22. FINDINGS: Image quality: Excellent. Bones and joints: Focal subchondral edema mild flattening at the distal articular surface of the 3rd metatarsal head is suspicious for healing Freiberg's disease. There is new mild osseous edema at the plantar aspect of the 2nd metatarsal head. No acute fracture line is seen. Hallux valgus alignment with chronic degeneration at the medial 1st metatarsal head and superimposed 1st metatarsophalangeal osteoarthrosis. Mild lateral subluxation of the hallux sesamoids. Mild degenerative changes at the 1st and 2nd tarsometatarsal joints. Scattered degenerative changes of the interphalangeal joints of the toes. Soft tissues: Soft tissue edema in the forefoot has decreased. The visualized plantar foot muscles demonstrate normal signal and bulk. Visualized flexor and extensor tendons appear intact, without tenosynovitis. The distal insertions of the peroneus brevis and longus tendons appear intact. The principal Lisfranc ligament appears intact. No soft tissue ganglion cysts or bursal fluid collections. Sagittal images demonstrate no evidence for plantar plate tears. IMPRESSION: 1. New osseous edema at the plantar aspect of the 2nd metatarsal head, which may be related to an osseous contusion, repetitive stress, or Freiberg's disease. 2. Focal subchondral edema at the distal 3rd metatarsal head articular surface with mild flattening, likely related to healing Freiberg's disease and significantly decreased when compared to the MRI from 08/12/2024. 3. Hallux valgus alignment with moderate 1st metatarsophalangeal osteoarthrosis and mild lateral subluxation of the sesamoids. 4. Mild degenerative changes of the 1st and 2nd tarsometatarsal joints and throughout the interphalangeal joints of the toes. Approved by: Misael Schneider M.D. on 10/20/2024 at 16:34
== END ==
PROVIDERS: PCP Nurse Practitioner Family; Referring Provider Nurse Practitioner Family; Visit Provider Podiatrist
DX: M84.375A Stress fracture, left foot, initial encounter for fracture (principal); M20.12 Hallux valgus (acquired), left foot; M19.072 Primary osteoarthritis, left ankle and foot; M25.475 Effusion, left foot; S93.142A Subluxation of metatarsophalangeal joint of left great toe, initial encounter; X58.XXXA Exposure to other specified factors, initial encounter
CPT/HCPCS: 73718

== ENCOUNTER → 2024-12-25 08:40 | Outpatient (CLI) | payer OTHER, SELFPAY ==
--- NOTE | 2024-12-25 08:42 | DI.NM.S_ITS ---
PROCEDURE: NM BONE 3 PHASE RADIOPHARMACEUTICAL: 22 mCi Tc-99m MDP IV. INDICATIONS: STRESS FRACTURE TECHNIQUE: Multiple bone scintigrams were obtained after intravenous injection of Tc-99m MDP, including flow, blood pool, and delayed images centered to the region of interest. COMPARISON: [facility], MR, MR FOOT LT WO CON, 08/12/2024, 9:22. [facility], MR, MR FOOT LT WO CON, 10/20/2024, 13:51. [facility], CR, XR FOOT LT MIN 3V, 07/30/2024, 8:02. FINDINGS: Three-phase imaging of the bilateral feet performed per protocol. Symmetric blood flow is noted in both feet. Mild asymmetric decreased blood pool activity in the left foot. No focal increased blood pool activity identified. Delayed imaging demonstrates mild nonspecific increase uptake in the region of the 2nd and 4th metatarsophalangeal joints and metatarsal heads. IMPRESSION: Mild nonspecific delayed activity in the 2nd and 4th metatarsophalangeal joints and metatarsal heads. No concomitant abnormal blood or blood flow activity. Findings could represent degenerative disease. Typically, stress fractures demonstrate increased activity on all 3 phases. Dictated by: Emmy Sun M.D. on 12/26/2024 at 13:04 Approved by: Emmy Sun M.D. on 12/26/2024 at 13:16
== END ==
LOC: NUCM 08:41
PROVIDERS: PCP Nurse Practitioner Family; Referring Provider Nurse Practitioner Family; Visit Provider Podiatrist
DX: M84.375D Stress fracture, left foot, subsequent encounter for fracture with routine healing (principal); X58.XXXD Exposure to other specified factors, subsequent encounter
CPT/HCPCS: 78315; A9503

== ENCOUNTER → 2025-03-20 12:45 | Outpatient (CLI) | payer OTHER, SELFPAY ==
--- NOTE | 2025-03-20 12:47 | DI.MRI.S_ITS ---
PROCEDURE: MRFOOT LT WO CON INDICATIONS: LEFT FOOT PAIN TECHNIQUE: Multiphasic, multisequence MRI of the forefoot was performed, without intravenous contrast administration. COMPARISON: [facility], MR, MR FOOT LT WO CON, 10/20/2024, 13:51. FINDINGS: Image quality: Excellent. Bones and joints: Mild degenerative change of the 1st metatarsophalangeal joint. Moderate subchondral marrow edema of the 1st metatarsal head, new from prior exam, raising concern for stress changes. Previously seen marrow edema at the 2nd and 4th metatarsal head has resolved. Mild subchondral marrow edema of the 3rd metatarsal head, improved from prior exam. Degenerative changes in the midfoot, most pronounced and moderate at the 2nd tarsometatarsal joint, where there is mild subchondral cystic changes and moderate subchondral marrow edema, progressed from prior exam. No acute fracture. Soft tissues: The Lisfranc ligament is intact. Mild 1st, and 2nd metatarsal bursitis. The visualized plantar fascia is unremarkable. The flexors tendon are unremarkable. Mild adventitial bursitis plantar to the 5th metatarsal head, new from prior exam. The extensor tendons are unremarkable. Muscles are normal in signal. IMPRESSION: 1. Moderate subchondral marrow edema of the 1st metatarsal head, new from prior exam, raising concern for stress changes. 2. Improved mild subchondral marrow edema of the 3rd metatarsal head. 3. Resolution of previously seen marrow edema at the 2nd and 4th metatarsal head. 4. Moderate degenerative changes in the 2nd tarsometatarsal joint, progressed. 5. Mild adventitial bursitis plantar to the 5th metatarsal head, new. Dictated by: Humera Sweeney M.D. on 03/20/2025 at 14:41 Approved by: Humera Sweeney M.D. on 03/20/2025 at 14:51
== END ==
LOC: MRI 12:46
PROVIDERS: PCP Nurse Practitioner Family; Referring Provider Podiatrist; Visit Provider Podiatrist
DX: M77.42 Metatarsalgia, left foot (principal); M79.672 Pain in left foot; M84.375D Stress fracture, left foot, subsequent encounter for fracture with routine healing; M71.572 Other bursitis, not elsewhere classified, left ankle and foot; R60.0 Localized edema
CPT/HCPCS: 73718